=== PATIENT | male | born 1990 | race African-American/Black ===

== ENCOUNTER 2018-01-03 02:03 | Emergency (ER) | payer SELFPAY ==
[2018-01-03 02:10] VITALS: BP 155/94; PULSE 137; RESP 18; TEMP 98.6; O2SAT 96
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
== END 2018-01-03 02:29 ==
DX: S00.83XA Contusion of other part of head, initial encounter (principal); Z02.89 Encounter for other administrative examinations; Y04.0XXA Assault by unarmed brawl or fight, initial encounter; Y92.89 Other specified places as the place of occurrence of the external cause; Y93.89 Activity, other specified